=== PATIENT | male | born 1980 | race Two or more races ===

== ENCOUNTER 2016-08-11 14:25 | Emergency (ER) | payer SELFPAY ==
--- NOTE | ~2016-08-11 | ER ---
PATIENT'S NAME: GUERITA WILKES [facility] AGE: 35 Y [address] ROOM: [place] [address] LOCATION: ED ADMIT DATE: 08/11/2016 ER/Outpatient Report DISCHARGE DATE: 08/11/2016 FAMILY PHYSICIAN: PHYSICIAN, NO ATTENDING PHYSICIAN: Keaton Hernandez TIME SEEN: 1435 hours. HISTORY OF PRESENT ILLNESS: The patient is a 35-year-old diabetic, presents with cold-like symptoms for 2 weeks which includes nasal congestion, sore throat. Denies any fever. Denies any productive cough. ALLERGIES: NONE. HOME MEDICATIONS: See copied list. Has been using some [id number] cough cold medications. PAST MEDICAL HISTORY: Includes bipolar, anxiety, type 2 insulin-dependent diabetes. PAST SURGICAL HISTORY: Include appendectomy. SOCIAL HISTORY: Smoker, a pack a day. No alcohol. REVIEW OF SYSTEMS: GENERAL: No fevers or chills. HEAD AND EENT: Includes nasal congestion, sore throat. RESPIRATORY: Occasional cough, nonproductive. Denies chest pain or hemoptysis. SKIN: No recent rash. OBJECTIVE FINDINGS: VITAL SIGNS: Blood pressure is 130/90, temperature is 98, respiratory rate 16, pulse 81, O2 sats 98%. GENERAL APPEARANCE: Nontoxic appearing, oriented. HEENT: Ears: Both TMs appear normal. Normal light reflex. Nose: Airway is patent. Mucosa normal. Throat: No redness, no exudate. Teeth: Good repair. NECK: Slightly tender anterior nodes. SKIN: Clear, has multiple tattoos. PATIENT'S NAME: GUERITA WILKES [facility] AGE: 35 Y [address] ROOM: [place] [address] LOCATION: [facility] ADMIT DATE: 08/11/2016 ER/Outpatient Report DISCHARGE DATE: 08/11/2016 FAMILY PHYSICIAN: PHYSICIAN, NO ATTENDING PHYSICIAN: Keaton Hernandez LABORATORY DATA AND X-RAY: Rapid strep was negative. ASSESSMENT: 1. Upper respiratory infection, probable viral. 2. Type 2 diabetes mellitus. 3. History of bipolar and anxiety. PLAN: Continue the throat lozenges, Mucinex DM [id number] for cough. Follow up with his primary care if he develops fever, cough becomes productive or if concerns. SAUL REESE MD SWJ/[email or web address] /[id number] d: 08/11/16 1948 t: 08/21/16 1741, OUTPATIENT REPORT
== END 2016-08-11 15:01 | disposition disaster alternative care site (69) ==
LOC: GMED 14:25
DX: J06.9 Acute upper respiratory infection, unspecified (principal); E11.9 Type 2 diabetes mellitus without complications; F31.9 Bipolar disorder, unspecified; F41.9 Anxiety disorder, unspecified; F17.210 Nicotine dependence, cigarettes, uncomplicated; Z90.49 Acquired absence of other specified parts of digestive tract; Z79.4 Long term (current) use of insulin; Z79.899 Other long term (current) drug therapy